=== PATIENT | female | born 1995 | race Caucasian/White ===

== ENCOUNTER 2017-04-03 12:40 | Emergency (ER) | payer BC ==
[2017-04-03 12:57] VITALS: BP 113/55
[2017-04-03] MEDS ORDERED: HYDROcodone/ACETAMIN 5-325 MG* 1 TAB PO ONE (13:29)
--- NOTE | 2017-04-03 14:08 | RAD ---
INDICATION: Bilateral ankle pain. TECHNIQUE: 3 views of both ankles were obtained. FINDINGS: The bones are in normal alignment. No fracture is seen. Joint spaces appear maintained. IMPRESSION: NEGATIVE EXAM.
--- NOTE | 2017-04-03 14:41 | UC ---
Jacek Oliva Benjamin, scribed for Nain Martinez MD on 04/03/17 at 1336 . Lower Extremity/Ankle HPI - HPI Summary HPI Summary: 21yo female c/o bilateral ankle pain and swelling that has been going on for month and gradually worsening. Pain is really worsened starting last week. Pain exists even at rest at 7 out of 10 scale but is aggravated with bearing weight or pressure to a 8-9 out of 10. Pt also reports working on her feet all day long. Pt locates the pain in the medial aspect of the ankle. Pt was tested for RA and limes disease, which both came back negative. 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 FHx of ovarian cyst, wisdom teeth removal, carpal tunnel, and anxiety. FHx of psoriatic arthritis. - History of Current Complaint Chief Complaint: UCLowerExtremity Stated Complaint: LEFT ANKLE PAIN Time Seen by Provider: 04/03/17 13:08 Hx Obtained From: Patient, Family/Meat Wrapper - father Hx Last Menstrual Period: IRREGULAR ?: No Onset/Duration: Gradual Onset, Lasting Weeks - for months, Still Present, Worse Since - last week Severity Initially: Moderate Severity Currently: Severe Pain Intensity: 7 Aggravating Factor(s): Standing, Ambulation Alleviating Factor(s): Rest, Elevation Able to Bear Weight: Yes - Allergies/Home Medications Allergies/Adverse Reactions: Allergies Allergy/AdvReac Type Severity Reaction Status Date / Time Penicillins [PCN] Allergy Nausea Verified 03/25/16 17:28 Home Medications: Home Medications Control Pill 04/03/17 [History] Levocetirizine Dihydrochloride [Levocetirizine Dihydrochl] 04/03/17 [History] PMH/Surg Hx/FS Hx/Imm Hx Other GI/ History: ovarian cyst Psychological History: Anxiety - Surgical History Surgical History: Yes Surgery Procedure, Year, and Place: WISDOM TEETH REMOVED; - Family History Known Family History: Positive: None Negative: Cardiac Disease, Hypertension, Diabetes Family History: R & n/C - Social History Occupation: Student Lives: With Family Alcohol Use: None Substance Use Type: None Smoking Status (MU): Never Smoked Tobacco Review of Systems Constitutional: Negative Skin: Negative Eyes: Negative ENT: Negative Respiratory: Negative Cardiovascular: Negative Gastrointestinal: Negative Genitourinary: Negative Motor: Negative Neurovascular: Negative Musculoskeletal: Arthralgia - bilateral ankle pain Neurological: Negative Psychological: Negative All Other Systems Reviewed And Are Negative: Yes Physical Exam Triage Information Reviewed: Yes Appearance: Well-Appearing, Well-Nourished, Pain Distress - mild Vital Signs: Initial Vital Signs Temp 98.6 F 04/03/17 12:52 Pulse 75 04/03/17 12:52 Resp 18 04/03/17 12:52 BP 113/55 04/03/17 12:52 Pulse Ox 100 04/03/17 12:52 Vital Signs Reviewed: Yes Eye Exam: Normal ENT Exam: Normal ENT: Positive: Normal ENT inspection, Pharynx normal, TMs normal Neck: Positive: Supple, Nontender Respiratory: Positive: Chest non-tender, Lungs clear, Normal breath sounds, No respiratory distress Cardiovascular: Positive: RRR, No Murmur Abdomen Description: Positive: Nontender, Soft Bowel Sounds: Positive: Present Musculoskeletal: Positive: Strength Intact, ROM Intact, Other: - Minimal swelling bilaterally medial ankles, posterior and inferior to the medial malleolus. Also tender in those areas. Full ROM intact. Neurological: Positive: Alert, Muscle Tone Normal Psychological: Positive: Age Appropriate Behavior Skin Exam: Normal Skin: Negative: rashes Diagnostics - Radiology Ankle XR Xray Interpretation: No Acute Changes Radiology Interpretation Completed By: Radiologist Re-Evaluation - Re-Evaluation First Eval Re-Evaluation Time: 14:29 Comment: Discussed imaging results with the pt, as well as pt's disposition. Lower Extremity Course/Dx - Course Course Of Treatment: Reviewed medication lists. DISCUSSED RESULTS WITH PATIENT. URIC ACID PENDING. - Differential Dx/Diagnosis Provider Diagnoses: B/L ANKLE PAIN/SWELLING, PROBABLE TARSAL TUNNEL SYNDROME. Discharge - Discharge Plan Condition: Stable Disposition: HOME Prescriptions: HYDROcodone/ACETAMIN 5-325 MG* [[place] 5-325 TAB*] 1 tab PO Q6H PRN #20 tab MDD 4 PRN Reason: Pain Patient Education Materials: Swollen Ankle Joint (ED), Tendinitis (ED) Referrals: Dontae Mcpherson MD [Primary Care Provider] - Additional Instructions: FOLLOW UP WITH YOUR DOCTOR. GET REEVALUATED FOR ANY WORSENING OF YOUR CONDITION OR QUESTIONS OR CONCERNS. The documentation as recorded by the Jacek spann Benjamin accurately reflects the service I personally performed and the decisions made by me, Nain Martinez MD.
== END 2017-04-03 15:00 | disposition home or self-care (01) ==
LOC: UCEAST 12:40
DX: M25.572 Pain in left ankle and joints of left foot (principal); M25.571 Pain in right ankle and joints of right foot; M25.472 Effusion, left ankle; M25.471 Effusion, right ankle; F41.9 Anxiety disorder, unspecified; Z88.0 Allergy status to penicillin
CPT/HCPCS: 36415; 84550; 99212; G0463

== ENCOUNTER 2019-09-10 20:09 | Emergency (ER) | payer BC, OTHER ==
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
[2019-09-10] MEDS ORDERED: Iodixanol* (CONTRAST) 320 MG/ML 100 ML SDV IV ONE (21:16)
[2019-09-10 21:24] LABS: ABS Lymphocytes 1.5 10^3/ul (1.0-4.8); ABS Monocytes 0.6 10^3/ul (0-0.8); ABS Neutrophils 6.9 10^3/ul (1.5-7.7); Eosinophil % 0.5 %; Hematocrit 36 % (35-47); Hemoglobin 12.4 g/dL (12.0-16.0); Lymphocyte % 16.4 %; Mean Corpuscular HGB Conc 34 g/dL (31-36); Mean Corpuscular Hemoglobin 29 pg (27-31); Mean Corpuscular Volume 85 fL (80-97); Mean Platelet Volume 7.5 fL (7.4-10.4); Platelet Count 265 10^3/uL (150-450); Red Blood Count 4.26 10^6 /uL (3.70-4.87); Red Cell Distribution Width 14 % (10-15); White Blood Count 9.1 10^3/uL (3.5-10.8)
[2019-09-10] MEDS ORDERED: Ketorolac INJ* 30 MG/ML 1 ML VIAL IV ONE (21:42)
[2019-09-10] MEDS ORDERED: NS 0.9% 1000 ML** 1,000 ML IV ONE (21:42)
[2019-09-10 21:43] LABS: ALT 12 U/L (7-52); AST 15 U/L (13-39); Albumin/Globulin Ratio 1.5 (1-3); Alkaline Phosphatase 31 U/L (34-104); Anion Gap 6 mmol/L (2-11); Blood Urea Nitrogen 13 mg/dL (6-24); CO2 Carbon Dioxide 26 mmol/L (22-32); Calcium 9.1 mg/dL (8.6-10.3); Chloride 104 mmol/L (101-111); EGFR African American 145.6 (>60); EGFR Non-African American 120.4 (>60); Globulin 2.7 g/dL (2-4); Glucose 92 mg/dL (70-100); Potassium 3.8 mmol/L (3.5-5.0); Sodium 136 mmol/L (135-145); Total Protein 6.7 g/dL (6.4-8.9)
[2019-09-10 21:46] LABS: Alcohol < 10 mg/dL (<10)
[2019-09-10 21:49] LABS: HCG Pregnancy < 0.60 mIU/mL
[2019-09-10] MEDS ORDERED: Morphine 4 MG/ML VIAL (1 ml) 4 MG/ML VIAL IV ONE (22:53)
[2019-09-10] MEDS ORDERED: Cyclobenzaprine TAB* 10 MG PO ONE (23:15)
[2019-09-11 00:13] VITALS: BP 92/62
== END 2019-09-11 00:15 | disposition home or self-care (01) ==
LOC: ED 20:09
DX: S16.1XXA Strain of muscle, fascia and tendon at neck level, initial encounter (principal); V48.5XXA Car driver injured in noncollision transport accident in traffic accident, initial encounter; Y92.410 Unspecified street and highway as the place of occurrence of the external cause; J45.909 Unspecified asthma, uncomplicated; F41.9 Anxiety disorder, unspecified; Z79.899 Other long term (current) drug therapy; Z88.0 Allergy status to penicillin; Z91.040 Latex allergy status
CPT/HCPCS: 36415; 70450; 71260; 72125; 74177; 80053; 80320; 83605; 84702; 85025; 86850; 86900; 86901; 96361; 96374; 96375; 99284; A9270-GY; G0480; J1885; J2270; Q9967